=== PATIENT | male | born 1955 | race American Indian/Alaskan Native ===

== ENCOUNTER 2016-10-13 20:13 | Emergency (ER) | payer OTHER ==
[2016-10-13 21:38] LABS: Eosinophils % (Auto) 2.1 % (0.0-4.3); Hematocrit 41.7 % (35.5-45.6); Hemoglobin 13.7 gm/dl (11.8-15.2); Mean Corpuscular HGB Conc 33 % (32-34); Mean Corpuscular Hemoglobin 30 pg (28-32); Mean Corpuscular Volume 90 fl (84-94); Platelet Count 293 K/mm3 (140-440); Red Blood Count 4.62 M/mm3 (3.65-5.03); Red Cell Distribution Width 14.1 % (13.2-15.2)
[2016-10-13] MEDS ORDERED: NACL 0.9% 1000 ML 1,000 ML IV ONE (21:39)
--- NOTE | 2016-10-13 21:45 | Emergency Department Report ---
ED Syncope HPI - General Chief Complaint: Syncope Stated Complaint: SYNCOPE Time Seen by Provider: 10/13/16 20:56 Source: patient, family, EMS Exam Limitations: no limitations - History of Present Illness Initial Comments: 61-year-old male with a past smoker history diabetes, hypertension, and bradycardia presents to the hospital complaints of near syncopal episode today. Patient was standing up off of a bench when he started to feel lightheaded. He felt thirsty and was going to drink water however just lay down on the ground since he felt like he was going to pass out. NO LOC. Positive associated diaphoresis. Denies nausea or vomiting at this time but has had nausea with vomiting with episodes in the past. Patient's blood pressure 73/56 upon EMS arrival. Patient received 1 L normal saline prior to arrival and improvement of blood pressure 134/86. EMS. Heart rate in the 50s. Glucose 121. Saturation 95% on room air. Patient expresses possibility of dehydration since he admits to decreased fluid intake and he is also on a diuretic. Patient has had a Holter monitor on for 2.5 weeks for similar episodes. He states he had a negative nuclear stress test and also had echocardiogram prior to Holter monitor placement 2-1/2 weeks ago. 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 Patient reports having a negative cardiac catheterization in 2011 after a similar episode that resulted in syncope and transient hypotension. - Related Data Allergies/Adverse Reactions: Allergies No Known Allergies Allergy (Verified 10/13/16 20:30) ED Review of Systems ROS: Stated complaint: SYNCOPE Other details as noted in HPI Comment: All other systems reviewed and negative Other: Constitutional: No fevers chills Eyes: No eye pain visual changes ENT: No ear pain or throat pain Neck: Denies pain Respiratory: Denies cough wheezing shortness of breath Cardiovascular: Denies chest pain, palpitations GI: Denies abdominal pain, nausea, vomiting, diarrhea : Denies dysuria, urinary frequency, or urgency Musculoskeletal: Denies back pain Skin: Denies rash, lesions, erythema Neurologic: Denies headache, numbness, weakness Psychiatric: Denies suicidal ideation, hallucinations ED Past Medical Hx - Past Medical History Previous Medical History?: Yes Hx Hypertension: Yes Hx Diabetes: Yes Additional medical history: bradycardia - Surgical History Past Surgical History?: No - Social History Smoking Status: Never Smoker Substance Use Type: Alcohol ED Physical Exam - General Limitations: No Limitations - Other Other exam information: General: No limitations, patient is alert in no acute distress Head exam: Atraumatic, normocephalic Eyes exam: Normal appearance, pupils equal reactive to light, extraocular movements intact ENT: Moist mucous membrane, normal oropharynx Neck exam: Normal inspection, full range of motion, no meningismus nontender Respiratory exam: Clear to auscultation bilateral, no wheezes, rales, crackles Cardiovascular: Normal rate and rhythm, normal heart sounds Abdomen: Soft, nondistended, and nontender, with normal bowel sounds, no rebound, or guarding Extremity: Full range of motion normal inspection no deformity Back: Normal Inspection, full range of motion, no tenderness Neurologic: Alert, oriented x3, cranial nerves intact, no motor or sensory deficit Psychiatric: normal affect, normal mood Skin: Warm, dry, intact ED Course Vital Signs 10/13/16 10/13/16 20:25 21:37 Temperature 97.9 F Pulse Rate 58 L Pulse Rate [ 62 Sitting] Respiratory 15 Rate Blood Pressure 117/73 [Left] Blood Pressure 121/75 [Sitting] O2 Sat by Pulse 96 Oximetry - Reevaluation(s) Reevaluation #1: 10/13/16 21:44 Patient complain of feeling lightheaded with standing. Additional IV fluids ordered. See orthostatic vital signs - Consultations Consultation #1: 10/13/16 23:15 cASE d/w Dr Gupta cards, rec admit and obs ED Medical Decision Making - Lab Data Result diagrams: 10/13/16 21:30 10/13/16 21:30 Lab Results 10/13/16 10/13/16 10/13/16 Range/Units 21:30 21:30 21:30 WBC 7.0 (4.5-11.0) K/mm3 RBC 4.62 (3.65-5.03) M/mm3 Hgb 13.7 (11.8-15.2) gm/dl Hct 41.7 (35.5-45.6) % MCV 90 (84-94) fl MCH 30 (28-32) pg MCHC 33 (32-34) % RDW 14.1 (13.2-15.2) % Plt Count 293 (140-440) K/mm3 Lymph % (Auto) 26.6 (13.4-35.0) % [place] % (Auto) 8.7 H (0.0-7.3) % Eos % (Auto) 2.1 (0.0-4.3) % Baso % (Auto) 1.0 (0.0-1.8) % Lymph # 1.9 (1.2-5.4) K/mm3 [place] # 0.6 (0.0-0.8) K/mm3 Eos # 0.1 (0.0-0.4) K/mm3 Baso # 0.1 (0.0-0.1) K/mm3 Seg Neutrophils % 61.6 (40.0-70.0) % Seg Neutrophils # 4.3 (1.8-7.7) K/mm3 Sodium 138 (137-145) mmol/L Potassium 3.6 (3.6-5.0) mmol/L Chloride 100.1 (98-107) mmol/L Carbon Dioxide 22 (22-30) mmol/L Anion Gap 20 mmol/L BUN 26 H (9-20) mg/dL Creatinine 1.0 (0.8-1.5) mg/dL Estimated GFR > 60 ml/min BUN/Creatinine Ratio 26.00 % Glucose 121 H (75-100) mg/dL Calcium 9.1 (8.4-10.2) mg/dL Magnesium (1.7-2.3) mg/dL Total Creatine Kinase 149 (55-170) units/L CK-MB (CK-2) 1.3 (0.0-4.0) ng/mL CK-MB (CK-2) Rel Index 0.8 (0-4) Troponin T < 0.010 (0.00-0.029) ng/mL 10/13/16 10/13/16 Range/Units 21:30 23:15 WBC (4.5-11.0) K/mm3 RBC (3.65-5.03) M/mm3 Hgb (11.8-15.2) gm/dl Hct (35.5-45.6) % MCV (84-94) fl MCH (28-32) pg MCHC (32-34) % RDW (13.2-15.2) % Plt Count (140-440) K/mm3 Lymph % (Auto) (13.4-35.0) % [place] % (Auto) (0.0-7.3) % Eos % (Auto) (0.0-4.3) % Baso % (Auto) (0.0-1.8) % Lymph # (1.2-5.4) K/mm3 [place] # (0.0-0.8) K/mm3 Eos # (0.0-0.4) K/mm3 Baso # (0.0-0.1) K/mm3 Seg Neutrophils % (40.0-70.0) % Seg Neutrophils # (1.8-7.7) K/mm3 Sodium (137-145) mmol/L Potassium (3.6-5.0) mmol/L Chloride (98-107) mmol/L Carbon Dioxide (22-30) mmol/L Anion Gap mmol/L BUN (9-20) mg/dL Creatinine (0.8-1.5) mg/dL Estimated GFR ml/min BUN/Creatinine Ratio % Glucose (75-100) mg/dL Calcium (8.4-10.2) mg/dL Magnesium 2.20 (1.7-2.3) mg/dL Total Creatine Kinase (55-170) units/L CK-MB (CK-2) (0.0-4.0) ng/mL CK-MB (CK-2) Rel Index (0-4) Troponin T < 0.010 (0.00-0.029) ng/mL - EKG Data -: EKG Interpreted by Me (sinus rhythm rate 55 lateral T inversions) - EKG Data When compared to previous EKG there are: previous EKG unavailable - Medical Decision Making Patient feels much better with IV hydration. I suspect that patient was dehydrated due to decreased by mouth intake, diuretic use, coffee use, and fluid loss due to hot weather. Admission and observation recommended to rule out arrhythmias. Patient declined admission at this time. It is encouraging that patient had a recent negative stress test, had a recent echo (results unknown) and is going home with a Holter monitor. Patient states he will return if symptoms worsen. Patient warranted and able to rule out life- threatening arrhythmias cause of his near syncopal episode at this time - Differential Diagnosis vasovagal, anemia, arrhythmia, dehydration Critical Care Time: No Critical care attestation.: If time is entered above; I have spent that time in minutes in the direct care of this critically ill patient, excluding procedure time. ED Disposition Clinical Impression: Near syncope, Dehydration, History of Holter monitoring Disposition: DC-07 LEFT AGAINST MED ADVICE Is pt being admited?: No Does the pt Need Aspirin: No Condition: Stable Instructions: Holter Monitoring (ED), Dehydration (ED), Near Syncope (ED) Additional Instructions: You have declined admission at this time. Admission was recommended by the bulldozer/loader/compactor/scraper for further monitoring of your heart in rhythm. Continue to drink plenty of fluids at home. Please follow-up with your bulldozer/loader/compactor/scraper tomorrow and please return if symptoms worsen. Referrals: your, bulldozer/loader/compactor/scraper [Other] - 10/14/16 Forms: AMA Form Time of Disposition: 23:52
[2016-10-13 22:06] LABS: Anion Gap 20 mmol/L; Blood Urea Nitrogen 26 mg/dL (9-20); Calcium 9.1 mg/dL (8.4-10.2); Carbon Dioxide 22 mmol/L (22-30); Chloride 100.1 mmol/L (98-107); Glucose 121 mg/dL (75-100); Potassium 3.6 mmol/L (3.6-5.0); Sodium 138 mmol/L (137-145)
[2016-10-13 22:08] LABS: Creatine Kinase MB 1.3 ng/mL (0.0-4.0)
[2016-10-14 05:29] VITALS: BP 131/86
== END 2016-10-14 00:35 | disposition left against medical advice (07) ==
LOC: ED 20:13
DX: R55 Syncope and collapse (principal); E86.0 Dehydration; I10 Essential (primary) hypertension; E11.9 Type 2 diabetes mellitus without complications
CPT/HCPCS: 36415; 80048; 82550; 82553; 83735; 84484; 85025; 93005; 93010; 96360; 99284; J7030

== ENCOUNTER 2017-09-04 03:39 | Observation (INO) | payer OTHER ==
[2017-09-04 05:13] LABS: Basophils # (Auto) 0.1 K/mm3 (0.0-0.1); Basophils % (Auto) 1.1 % (0.0-1.8); Eosinophils # (Auto) 0.1 K/mm3 (0.0-0.4); Eosinophils % (Auto) 1.4 % (0.0-4.3); Hematocrit 38.1 % (35.5-45.6); Hemoglobin 12.7 gm/dl (11.8-15.2); Lymphocytes # (Auto) 1.4 K/mm3 (1.2-5.4); Lymphocytes % (Auto) 25.9 % (13.4-35.0); Mean Corpuscular HGB Conc 33 % (32-34); Mean Corpuscular Hemoglobin 31 pg (28-32); Mean Corpuscular Volume 92 fl (84-94); Monocytes # (Auto) 0.5 K/mm3 (0.0-0.8); Monocytes % (Auto) 9.5 % (0.0-7.3); Platelet Count 249 K/mm3 (140-440); Red Blood Count 4.15 M/mm3 (3.65-5.03); Red Cell Distribution Width 14.1 % (13.2-15.2)
[2017-09-04 05:26] LABS: BUN/Creatinine Ratio 25; Blood Urea Nitrogen 20 mg/dL (9-20); Calcium 9.1 mg/dL (8.4-10.2); Hemolysis Index 3
[2017-09-04] MEDS ORDERED: NACL 0.9% 500 ML 500 ML IV ONE (06:25)
[2017-09-04] MEDS ORDERED: K-DUR PO ONE (06:28)
[2017-09-04] MEDS ORDERED: NACL 0.9% 1000 ML 1,000 ML IV ONE (06:28)
--- NOTE | 2017-09-04 07:07 | XRay Report ---
FINAL REPORT EXAM: XR CHEST 1V AP HISTORY: possible Sepsis TECHNIQUE: Two portable semi-upright views of the chest were obtained. FINDINGS: Heart size and mediastinum appear normal. The lungs are not congested. There are no localized infiltrates or effusions. The skeletal structures do not show any acute changes. IMPRESSION: No acute cardiopulmonary process.
[2017-09-04 07:48] LABS: INR 0.91 (0.87-1.13)
[2017-09-04 07:49] LABS: Partial Thromboplastin Time 25.2 Sec. (24.2-36.6)
[2017-09-04 07:56] LABS: Creatine Kinase MB 1.5 ng/mL (0.0-4.0)
[2017-09-04 07:58] LABS: Alanine Aminotransferase 24 units/L (7-56); Albumin 3.9 g/dL (3.9-5); Bilirubin,Direct < 0.2 mg/dL (0-0.2)
[2017-09-04 08:18] LABS: Bilirubin,Urine NEG (Negative); Blood,Urine NEG (Negative); Color,Urine Yellow (Yellow); Mucus,Urine FEW /HPF; Protein,Urine <15 mg/dL mg/dL (Negative); Urobilinogen,Urine < 2.0 mg/dL (<2.0)
[2017-09-04 08:26] LABS: Amphetamine Screen,Urine PRESUMPTIVE NEGATIVE; Benzodiazepines Screen,Urine PRESUMPTIVE NEGATIVE; Cocaine Screen,Urine PRESUMPTIVE NEGATIVE; Methadone Screen,Urine PRESUMPTIVE NEGATIVE; Opiate Screen,Urine PRESUMPTIVE NEGATIVE
[2017-09-04 08:40] LABS: Cannabinoid Screen,Urine PRESUMPTIVE POSITIVE
--- NOTE | 2017-09-04 11:59 | History and Physical Report ---
History of Present Illness Date of examination: 09/04/17 Date of admission: 09/04/17 07:46 Past History Past Medical History: diabetes, heart failure, hypertension Past Surgical History: No surgical history Social history: lives with family, full code. denies: smoking Family history: hypertension Medications and Allergies Allergies Allergy/AdvReac Type Severity Reaction Status Date / Time No Known Allergies Allergy Verified 10/13/16 20:30 Home Medications Medication Instructions Recorded Confirmed Last Taken Type Acetazolamide 250 mg PO BID 09/04/17 09/04/17 Unknown History Atorvastatin Calcium 10 mg PO QDAY 09/04/17 09/04/17 Unknown History Brimonidine Tartrate 0.2% 0.2 drops OS BID 09/04/17 09/04/17 Unknown History Bupropion HCl 100 mg PO BID 09/04/17 09/04/17 Unknown History Escitalopram Oxalate 20 mg PO QDAY 09/04/17 09/04/17 Unknown History Fluticasone Propionate 50 mcg INTRANASAL BID 09/04/17 09/04/17 Unknown History Latanoprost 0.005% 0.005 drops OS HS 09/04/17 09/04/17 Unknown History Metformin HCl 500 mg PO BID 09/04/17 09/04/17 Unknown History Nifedipine ER 60 mg PO QDAY 09/04/17 09/04/17 Unknown History Tamsulosin 0.4 mg PO HS 09/04/17 09/04/17 Unknown History Losartan [Cozaar] 25 mg PO QDAY #30 tablet 09/05/17 Unknown Rx Active Meds: Active Medications Sodium Chloride (Nacl 0.9% 1000 Ml) 1,000 mls @ 125 mls/hr IV ONCE ONE Stop: 09/04/17 14:27 Last Admin: 09/04/17 07:35 Dose: 125 mls/hr Review of Systems All systems: negative (No fever, no headache, no abdominal pain. All other systems reviewed and are negative) Exam - Physical Exam Narrative exam: Constitutional; Not in acute distress, Obese HEENT: Atraumatic, normocephalic Neck: supple, no lymphadenopathy, JVD Lungs: Clear to auscultation, bilaterally, no wheeze, no crackles CVS; S1-S2 regular, no murmurs, rubs or gallop, Abdomen; soft, non-tender, non distended,bowel sounds are normal, Musculoskeletal; No edema, clubbing , or cyanosis [employer] UTILITY OPERATOR: Awake, alert,oriented x3, no focal neurological signs - Constitutional Vitals: Temp Pulse Resp BP Pulse Ox 99.0 F 64 22 104/68 96 09/04/17 09:36 09/04/17 09:36 09/04/17 09:36 09/04/17 09:36 09/04/17 09:36 Results - Labs CBC & Chem 7: 09/05/17 07:42 09/05/17 07:42 Labs: Abnormal lab results 09/04/17 09/04/17 09/04/17 Range/Units 04:53 04:53 07:06 [place] % (Auto) 9.5 H (0.0-7.3) % Potassium 2.9 L* (3.6-5.0) mmol/L Glucose 133 H (75-100) mg/dL Lactic Acid 2.50 H* (0.7-2.0) mmol/L Total Creatine Kinase (55-170) units/L 09/04/17 09/04/17 Range/Units 07:06 08:17 [place] % (Auto) (0.0-7.3) % Potassium (3.6-5.0) mmol/L Glucose (75-100) mg/dL Lactic Acid 2.10 H* (0.7-2.0) mmol/L Total Creatine Kinase 201 H (55-170) units/L Assessment and Plan Near syncope due to hypotension Admit to Telemetry Hold some BP meds
[2017-09-04] MEDS ORDERED: METFORMIN HCL 500 MG PO SCH (15:15)
--- NOTE | 2017-09-04 15:41 | Emergency Department Report ---
ED General Adult HPI - General Chief complaint: Arrhythmia/Palpitations Stated complaint: LBP Time Seen by Provider: 09/04/17 06:24 Source: patient, EMS Mode of arrival: Stretcher Limitations: No Limitations - History of Present Illness Initial comments: 7-year-old male with bradycardia and hypotension field. This patient's second similar such episode. He was here once before within the last few years and signed out AGAINST MEDICAL ADVICE. He states that his standing blood pressure was 60/40 when EMS arrived. Prior was 90/60. His heart rate was in the 50s. He was given 700 milliliters of IV fluid and wrapped to the hospital. His blood pressure did improve. His initial heart rate was 64. Patient did not complain of chest pain. He had acute episodic weakness. He denied headache. He denied acute shortness of breath. He has not had any recent travel or leg pain or swelling. He did feel like he was going to pass out but did not completely do so. There was no loss of consciousness. Patient has a history of hypertension. He is on amlodipine, losartan and HCTZ. He is a type II diabetic. -: Gradual Improves with: none Worsens with: other (standing) Associated Symptoms: denies other symptoms, syncope (near syncope) - Related Data Home Medications Medication Instructions Recorded Confirmed Last Taken Acetazolamide 250 mg PO BID 09/04/17 09/04/17 Unknown Atorvastatin Calcium 10 mg PO QDAY 09/04/17 09/04/17 Unknown Brimonidine Tartrate 0.2% 0.2 drops OS BID 09/04/17 09/04/17 Unknown Bupropion HCl 100 mg PO BID 09/04/17 09/04/17 Unknown Escitalopram Oxalate 20 mg PO QDAY 09/04/17 09/04/17 Unknown Fluticasone Propionate 50 mcg INTRANASAL BID 09/04/17 09/04/17 Unknown Latanoprost 0.005% 0.005 drops OS HS 09/04/17 09/04/17 Unknown Losartan-Hctz 100-25 mg Tab 100 mg PO QDAY 09/04/17 09/04/17 Unknown Metformin HCl 500 mg PO BID 09/04/17 09/04/17 Unknown Nifedipine ER 60 mg PO QDAY 09/04/17 09/04/17 Unknown Tamsulosin 0.4 mg PO HS 09/04/17 09/04/17 Unknown Allergies Allergy/AdvReac Type Severity Reaction Status Date / Time No Known Allergies Allergy Verified 10/13/16 20:30 ED Review of Systems ROS: Stated complaint: LBP Other details as noted in HPI Constitutional: weakness. denies: chills, fever Eyes: denies: eye pain, eye discharge, vision change ENT: denies: ear pain, throat pain Respiratory: denies: cough, shortness of breath, wheezing Cardiovascular: syncope (near). denies: chest pain, palpitations Endocrine: no symptoms reported Gastrointestinal: denies: abdominal pain, nausea, diarrhea Genitourinary: denies: urgency, dysuria Musculoskeletal: denies: back pain, joint swelling, arthralgia Skin: denies: rash, lesions Neurological: denies: headache, weakness, paresthesias Psychiatric: denies: anxiety, depression Hematological/Lymphatic: denies: easy bleeding, easy bruising ED Past Medical Hx - Past Medical History Previous Medical History?: Yes Hx Hypertension: Yes Hx Congestive Heart Failure: Yes Hx Diabetes: Yes Hx Asthma: No Hx COPD: No Hx HIV: No Additional medical history: bradycardia - Surgical History Past Surgical History?: No Hx Cholecystectomy: Yes - Social History Smoking Status: Never Smoker - Medications Home Medications: Home Medications Medication Instructions Recorded Confirmed Last Taken Type Acetazolamide 250 mg PO BID 09/04/17 09/04/17 Unknown History Atorvastatin Calcium 10 mg PO QDAY 09/04/17 09/04/17 Unknown History Brimonidine Tartrate 0.2% 0.2 drops OS BID 09/04/17 09/04/17 Unknown History Bupropion HCl 100 mg PO BID 09/04/17 09/04/17 Unknown History Escitalopram Oxalate 20 mg PO QDAY 09/04/17 09/04/17 Unknown History Fluticasone Propionate 50 mcg INTRANASAL BID 09/04/17 09/04/17 Unknown History Latanoprost 0.005% 0.005 drops OS HS 09/04/17 09/04/17 Unknown History Losartan-Hctz 100-25 mg Tab 100 mg PO QDAY 09/04/17 09/04/17 Unknown History Metformin HCl 500 mg PO BID 09/04/17 09/04/17 Unknown History Nifedipine ER 60 mg PO QDAY 09/04/17 09/04/17 Unknown History Tamsulosin 0.4 mg PO HS 09/04/17 09/04/17 Unknown History ED Physical Exam - General Limitations: No Limitations General appearance: alert, in no apparent distress - Head Head exam: Present: atraumatic, normocephalic - Eye Eye exam: Present: normal appearance. Absent: scleral icterus - ENT ENT exam: Present: mucous membranes moist - Neck Neck exam: Present: normal inspection. Absent: tenderness - Respiratory Respiratory exam: Present: normal lung sounds bilaterally. Absent: respiratory distress - Cardiovascular Cardiovascular Exam: Present: regular rate, normal rhythm. Absent: systolic murmur, diastolic murmur, rubs, gallop - GI/Abdominal GI/Abdominal exam: Present: soft, normal bowel sounds. Absent: distended, tenderness, guarding, rebound, rigid - Rectal Rectal exam: Present: deferred - Extremities Exam Extremities exam: Present: normal inspection - Back Exam Back exam: Present: normal inspection - Neurological Exam Neurological exam: Present: alert, oriented X3, CN II-XII intact. Absent: motor sensory deficit - Psychiatric Psychiatric exam: Present: normal affect, normal mood - Skin Skin exam: Present: warm, dry, intact, normal color. Absent: rash ED Course Vital Signs 09/04/17 09/04/17 09/04/17 03:51 04:00 04:06 Temperature 98.3 F Pulse Rate 58 L 60 64 Respiratory 15 8 L 18 Rate Blood Pressure 119/77 119/77 O2 Sat by Pulse 95 99 Oximetry 09/04/17 09/04/17 09/04/17 04:30 04:31 05:00 Temperature Pulse Rate 62 70 Respiratory 18 10 L 16 Rate Blood Pressure 129/81 117/78 O2 Sat by Pulse 100 93 93 Oximetry 09/04/17 09/04/17 09/04/17 05:30 06:00 06:31 Temperature Pulse Rate 75 74 72 Respiratory 17 15 26 H Rate Blood Pressure 118/75 111/70 86/53 O2 Sat by Pulse 93 92 99 Oximetry 09/04/17 09/04/17 09/04/17 07:01 07:31 08:01 Temperature Pulse Rate 56 L 59 L 64 Respiratory 12 10 L 17 Rate Blood Pressure 86/53 121/71 119/75 O2 Sat by Pulse 98 93 97 Oximetry 09/04/17 09:00 Temperature Pulse Rate Respiratory Rate Blood Pressure 119/75 O2 Sat by Pulse 97 Oximetry - Reevaluation(s) Reevaluation #1: Patient was given additional IV fluid. He is probably over-diuresed as he was also hypokalemic. He was given oral potassium. He was admitted by Dr. Cade for further care and evaluation to the hospitalist service. 09/04/17 15:50 ED Medical Decision Making - Lab Data Result diagrams: 09/04/17 04:53 09/04/17 04:53 Laboratory Results - last 24 hr 09/04/17 09/04/17 09/04/17 04:53 04:53 07:06 WBC 5.5 RBC 4.15 Hgb 12.7 Hct 38.1 MCV 92 MCH 31 MCHC 33 RDW 14.1 Plt Count 249 Lymph % (Auto) 25.9 [place] % (Auto) 9.5 H Eos % (Auto) 1.4 Baso % (Auto) 1.1 Lymph # 1.4 [place] # 0.5 Eos # 0.1 Baso # 0.1 Seg Neutrophils % 62.1 Seg Neutrophils # 3.4 PT 12.7 INR 0.91 APTT 25.2 VBG pH Sodium 137 Potassium 2.9 L* Chloride 99.8 Carbon Dioxide 22 Anion Gap 18 BUN 20 Creatinine 0.8 Estimated GFR > 60 BUN/Creatinine Ratio 25 Glucose 133 H Lactic Acid Calcium 9.1 Magnesium Total Bilirubin Direct Bilirubin Indirect Bilirubin AST ALT Alkaline Phosphatase Total Creatine Kinase CK-MB (CK-2) CK-MB (CK-2) Rel Index NT-Pro-B Natriuret Pep Total Protein Albumin Albumin/Globulin Ratio Plasma/Serum Alcohol Blood Type Antibody Screen 09/04/17 09/04/17 09/04/17 07:06 07:06 07:06 WBC RBC Hgb Hct MCV MCH MCHC RDW Plt Count Lymph % (Auto) [place] % (Auto) Eos % (Auto) Baso % (Auto) Lymph # [place] # Eos # Baso # Seg Neutrophils % Seg Neutrophils # PT INR APTT VBG pH 7.396 Sodium Potassium Chloride Carbon Dioxide Anion Gap BUN Creatinine Estimated GFR BUN/Creatinine Ratio Glucose Lactic Acid 2.50 H* Calcium Magnesium Total Bilirubin 0.60 Direct Bilirubin < 0.2 Indirect Bilirubin 0.4 AST 16 ALT 24 Alkaline Phosphatase 88 Total Creatine Kinase 201 H CK-MB (CK-2) 1.5 CK-MB (CK-2) Rel Index 0.7 NT-Pro-B Natriuret Pep Total Protein 6.7 Albumin 3.9 Albumin/Globulin Ratio 1.4 Plasma/Serum Alcohol Blood Type Antibody Screen 09/04/17 09/04/17 09/04/17 07:06 07:06 07:06 WBC RBC Hgb Hct MCV MCH MCHC RDW Plt Count Lymph % (Auto) [place] % (Auto) Eos % (Auto) Baso % (Auto) Lymph # [place] # Eos # Baso # Seg Neutrophils % Seg Neutrophils # PT INR APTT VBG pH Sodium Potassium Chloride Carbon Dioxide Anion Gap BUN Creatinine Estimated GFR BUN/Creatinine Ratio Glucose Lactic Acid Calcium Magnesium 2.00 Total Bilirubin Direct Bilirubin Indirect Bilirubin AST ALT Alkaline Phosphatase Total Creatine Kinase CK-MB (CK-2) CK-MB (CK-2) Rel Index NT-Pro-B Natriuret Pep 23.42 Total Protein Albumin Albumin/Globulin Ratio Plasma/Serum Alcohol < 0.01 Blood Type O POSITIVE Antibody Screen Negative - EKG Data -: EKG Interpreted by Me EKG shows normal: sinus rhythm Rate: normal - EKG Data Interpretation: no acute changes - Radiology Data Radiology results: report reviewed interpreted by me: Chest x-ray no acute process Critical care attestation.: If time is entered above; I have spent that time in minutes in the direct care of this critically ill patient, excluding procedure time. ED Disposition Clinical Impression: Near syncope, Hypokalemia Disposition: OP ADMIT IP TO THIS HOSP Is pt being admited?: Yes Does the pt Need Aspirin: Yes Condition: Stable Time of Disposition: 15:53
[2017-09-04] MEDS ORDERED: GLUCOPHAGE PO SCH (17:00)
[2017-09-04] MEDS ORDERED: LATANOPROST 0.005% OU SCH (18:00)
[2017-09-04] MEDS ORDERED: BRIMONIDINE TARTRATE 0.2% OS SCH (22:00)
[2017-09-04] MEDS ORDERED: FLUTICASONE PROPIONATE 50 MCG INTRANASAL SCH (22:00)
[2017-09-04] MEDS ORDERED: LATANOPROST 0.005% OS SCH (22:00)
[2017-09-04] MEDS ORDERED: FLOMAX PO SCH (22:00)
[2017-09-04] MEDS ORDERED: NON-FORMULARY (Tamsulosin 0.4 MG) PO SCH (22:00)
[2017-09-04] MEDS: FLONASE NS SCH (22:13)
[2017-09-05 08:33] LABS: Hematocrit 37.5 % (35.5-45.6); Hemoglobin 12.5 gm/dl (11.8-15.2); Mean Corpuscular HGB Conc 33 % (32-34); Mean Corpuscular Hemoglobin 31 pg (28-32); Mean Corpuscular Volume 92 fl (84-94); Platelet Count 236 K/mm3 (140-440); Red Blood Count 4.07 M/mm3 (3.65-5.03); Red Cell Distribution Width 14.2 % (13.2-15.2)
[2017-09-05 08:44] LABS: BUN/Creatinine Ratio 16; Blood Urea Nitrogen 11 mg/dL (9-20); Calcium 8.7 mg/dL (8.4-10.2); Hemolysis Index 4
[2017-09-05] MEDS ORDERED: HEPARIN SUB-Q SCH (10:00)
[2017-09-05] MEDS ORDERED: ATORVASTATIN CALCIUM 10 MG PO SCH (10:00)
[2017-09-05] MEDS: FLONASE NS SCH (10:14)
[2017-09-05] MEDS ORDERED: NIFEDIPINE 60 MG PO SCH (13:30)
[2017-09-05] MEDS ORDERED: COZAAR PO SCH (14:00)
[2017-09-05] MEDS ORDERED: PROCARDIA XL PO SCH (14:00)
[2017-09-05] MEDS ORDERED: BABY ASPIRIN PO ONE (15:53)
--- NOTE | 2017-09-05 16:48 | Discharge Summary ---
Providers - Providers Date of Admission: 09/04/17 07:46 Date of discharge: 09/05/17 Attending physician: АЛЕКСАНДР PETERSON Hospitalization Condition: Fair Disposition: DC-01 TO HOME OR SELFCARE Exam - Constitutional Vitals: Temp Pulse Resp BP Pulse Ox 99.7 F H 79 19 140/107 96 09/05/17 11:41 09/05/17 14:21 09/05/17 11:41 09/05/17 14:21 09/05/17 12:32 Plan Activity: advance as tolerated Diet: low fat, low cholesterol, low salt, diabetic Additional Instructions: 1.Follow up with PCP in 1 week. 2.Check BMP in 1 week to be followed by PCP. Follow up with: KATHY RUBIO [Other] - 7 Days Prescriptions: Losartan [Cozaar] 25 mg PO QDAY #30 tablet
[2017-09-05 18:40] VITALS: BP 158/94
== END 2017-09-05 18:30 | disposition home or self-care (01) ==
LOC: ED 03:39 → 3A 07:46 → INTOOBSV 07:46
PROVIDERS: ADMIT Internal Medicine; ATTEND Internal Medicine
DX: I95.9 Hypotension, unspecified (principal); I11.0 Hypertensive heart disease with heart failure; I50.9 Heart failure, unspecified; E11.9 Type 2 diabetes mellitus without complications; Z82.49 Family history of ischemic heart disease and other diseases of the circulatory system
CPT/HCPCS: 36415; 71045; 80048; 80074; 80307; 81001; 82140; 82550; 82553; 82805; 83735; 83880; 84484; 85025; 85027; 85610; 85730; 86850; 86900; 86901; 87040; 87086; 93005; 93010; 93306; 96360; 96361; 96372; 99285; A9270; G0378; G0480; J1644; J7030; J7040; 80320